=== PATIENT | female | born 1950 | race Caucasian/White ===

== ENCOUNTER 2019-07-16 10:50 | Outpatient (CLI) | payer MEDICARE, OTHER, SELFPAY ==
[2019-07-16 11:02] VITALS: BP 134/78; PULSE 62; RESP 16; TEMP 36.6; O2SAT 98
[2019-07-16] MEDS: denosumab 60 mg SDV SUBCUT (11:18)
[2019-07-16 11:19] VITALS: BP 120/70; RESP 16; TEMP 36.5; O2SAT 98
== END 2019-07-16 10:51 | disposition home or self-care (01) ==
LOC: RHEOACUTE 10:52
PROVIDERS: Family Provider Family Medicine; PCP Family Medicine; Visit Provider Family Medicine
DX: M81.0 Age-related osteoporosis without current pathological fracture (principal)
CPT/HCPCS: 96372; J0897

== ENCOUNTER 2020-01-25 11:30 | Outpatient (CLI) | payer MEDICARE, OTHER, SELFPAY ==
[2020-01-25 11:25] VITALS: BP 127/64; PULSE 63; RESP 16; TEMP 36.6; O2SAT 98
[2020-01-25] MEDS: denosumab 60 mg SDV SUBCUT (11:40)
[2020-01-25 12:07] VITALS: BP 139/74; PULSE 60; RESP 16; O2SAT 98
== END 2020-01-25 11:31 | disposition home or self-care (01) ==
LOC: RHEOACUTE 11:31
PROVIDERS: Family Provider Family Medicine; PCP Family Medicine; Visit Provider Internal Medicine Rheumatology
DX: M81.0 Age-related osteoporosis without current pathological fracture (principal)
CPT/HCPCS: 96372; J0897

== ENCOUNTER 2020-02-09 14:18 | Outpatient (CLI) | payer MEDICARE, OTHER, SELFPAY ==
--- NOTE | 2020-02-09 14:27 | XR_ITS ---
WS: [id number] EXAM: XR DEXA axial skeleton* [id number] DATE OF EXAMINATION: 02/09/2020, 1429 hours COMPARISON: Prior DEXA scan from 01/06/2018 HISTORY: 69 years year old female. Screening for osteoporosis. Postmenopausal. FINDINGS: Bone density of L1 through L4 is estimated at 0.904 g/cm sq: T-score of -2.3. This falls in the rang e of osteopenia. Correlates with an estimated 0.4% decrease in bone density since 2018 Bilateral proximal femur regions have estimated bone mineral density estimated at 0.907 and 0.859 g/c m sq, right and left wrist likely, correlating with a T-score of -0.8 and -1.2. This falls in the ran ge of normal on the right and osteopenia on the left. Correlation estimated 0.8% increase in bone de nsity since 2018 10-year fracture risk for major osteoporotic fracture is 19%. XR/XR DEXA axial skeleton* [id number] IMPRESSION: Osteopenia within the left proximal femur region and lumbar spine region as a w hole. Estimated 0.4% decrease in bone density in the lumbar spine region since 2018.
== END 2020-02-09 14:19 | disposition home or self-care (01) ==
LOC: RADWPI 14:26
PROVIDERS: Family Provider Family Medicine; PCP Family Medicine; Visit Provider Family Medicine
DX: Z78.0 Asymptomatic menopausal state (principal); Z13.820 Encounter for screening for osteoporosis; M85.89 Other specified disorders of bone density and structure, multiple sites
CPT/HCPCS: 77080

== ENCOUNTER → 2020-03-28 10:50 | Outpatient (BNVA) | payer MEDICARE, OTHER, SELFPAY | PROVIDERS: Family Provider Family Medicine; PCP Family Medicine; Visit Provider Obstetrics & Gynecology | DX: Z01.419 Encounter for gynecological examination (general) (routine) without abnormal findings (principal) | CPT/HCPCS: 82270 ==

== ENCOUNTER 2020-04-14 07:50 | Outpatient (CLI) | payer MEDICARE, OTHER, SELFPAY ==
--- NOTE | 2020-04-14 08:00 | MM_ITS ---
WS: [id number] Bilateral screening digital mammogram, 04/14/2020 Clinical Data: SCREENING Comparison: 04/12/2019, 04/10/2018, 04/09/2017, 04/02/2016, 03/30/2015, 03/28/2014, 03/25/2013, 2, 03/03/2012, 02/12/2011, 02/09/2010, 01/12/2009, 12/17/2007, 12/09/2006. Findings: The breast parenchymal pattern shows ridging is density No spiculated masses or clustered calcificati ons are seen. There are no secondary signs of carcinoma. MM/[place] [id number] Impression: 1. Negative bilateral mammogram unchanged. 2. Recommend annual screening mammograms. BIRADS: 1-Negative FOLLOW UP: 1 Year Follow-up The CAD receiving checker was used.
== END 2020-04-14 07:51 | disposition home or self-care (01) ==
LOC: RADSHAW 07:58
PROVIDERS: PCP Family Medicine; Visit Provider Obstetrics & Gynecology
DX: Z12.31 Encounter for screening mammogram for malignant neoplasm of breast (principal)
CPT/HCPCS: 77067

== ENCOUNTER 2020-08-14 10:37 | Outpatient (CLI) | payer MEDICARE, OTHER, SELFPAY ==
[2020-08-14 10:50] VITALS: BP 128/72; PULSE 65; RESP 18; TEMP 36.9; O2SAT 99
[2020-08-14] MEDS: denosumab 60 mg SDV SUBCUT (10:56)
[2020-08-14 15:23] VITALS: BP 128/72; PULSE 65; RESP 18; TEMP 36.9; O2SAT 99
== END 2020-08-14 10:38 | disposition home or self-care (01) ==
LOC: ONCMED 10:39
PROVIDERS: PCP Family Medicine; Visit Provider Family Medicine
DX: M81.0 Age-related osteoporosis without current pathological fracture (principal)
CPT/HCPCS: 96372; J0897

== ENCOUNTER 2021-02-12 14:15 | Outpatient (CLI) | payer MEDICARE, OTHER, SELFPAY ==
[2021-02-12 14:30] VITALS: BP 134/64; PULSE 61; RESP 18; TEMP 36.6; O2SAT 95
[2021-02-12] MEDS: denosumab 60 mg SDV SUBCUT (16:13)
== END 2021-02-12 14:16 | disposition home or self-care (01) ==
PROVIDERS: PCP Family Medicine; Visit Provider Family Medicine
DX: M81.0 Age-related osteoporosis without current pathological fracture (principal); Z79.899 Other long term (current) drug therapy
CPT/HCPCS: 96372; J0897

== ENCOUNTER 2021-04-18 08:04 | Outpatient (CLI) | payer MEDICARE, OTHER, SELFPAY ==
--- NOTE | 2021-04-18 08:16 | MM_ITS ---
WS: [id number] BILATERAL DIGITAL SCREENING MAMMOGRAPHY WITH CAD CLINICAL INFORMATION: SCREENING HISTORY: Screening mammogram. No current complaints. COMPARISON: April 14, 2020 TECHNIQUE: Bilateral CC and MLO views. FINDINGS: The breasts are composed of heterogeneous fibroglandular density tissue, which can limit the detectio n of small underlying mass lesions. Punctate and lucent centered calcifications. No suspicious mass, asymmetry, calcifications, or architectural distortion. No evidence of malignancy. MM/[place] [id number] IMPRESSION: BI-RADS: 2-Benign FOLLOW UP: 1 Year Follow-up Recommend return to annual screening mammography.
== END 2021-04-18 08:05 | disposition home or self-care (01) ==
PROVIDERS: PCP Family Medicine; Visit Provider Family Medicine
DX: Z12.31 Encounter for screening mammogram for malignant neoplasm of breast (principal)
CPT/HCPCS: 77067

== ENCOUNTER 2021-08-20 12:47 | Outpatient (CLI) | payer MEDICARE, OTHER, SELFPAY ==
[2021-08-20 12:58] VITALS: BP 125/77; PULSE 68; RESP 18; TEMP 36.6; O2SAT 97
[2021-08-20] MEDS: denosumab 60 mg SDV SUBCUT (13:07)
[2021-08-20 13:13] VITALS: BP 107/72; PULSE 66; RESP 18; TEMP 36.9; O2SAT 97
== END 2021-08-20 12:48 | disposition home or self-care (01) ==
PROVIDERS: PCP Family Medicine; Visit Provider Family Medicine
DX: M81.0 Age-related osteoporosis without current pathological fracture (principal)
CPT/HCPCS: 96372; J0897

== ENCOUNTER 2022-02-19 10:45 | Outpatient (CLI) | payer MEDICARE, OTHER, SELFPAY ==
[2022-02-19 11:12] VITALS: BP 126/76; PULSE 76; RESP 18; TEMP 36.2; O2SAT 98
[2022-02-19] MEDS: denosumab 60 mg SDV SUBCUT (11:17)
[2022-02-19 11:26] VITALS: BP 131/77; PULSE 77; RESP 18; TEMP 36.6; O2SAT 96
== END 2022-02-19 10:46 | disposition home or self-care (01) ==
PROVIDERS: PCP Family Medicine; Visit Provider Family Medicine
DX: M81.0 Age-related osteoporosis without current pathological fracture (principal)
CPT/HCPCS: 96372; J0897

== ENCOUNTER 2022-03-07 14:26 | Outpatient (CLI) | payer MEDICARE, OTHER, SELFPAY ==
--- NOTE | 2022-03-07 14:28 | XR_ITS ---
WS: [email or web address] SCREENING DEXA SCAN [facility] CLINICAL INFORMATION: OSTEOPOROSIS COMPARISON: February 09, 2020 FINDINGS: The L1-L4 bone mineral density measures 0.997 g/cm2. This corresponds to a T score score of -1.5 and Z score of 0.3. Left femoral neck bone mineral density measures 0.885 g/cm2. This corresponds to a T score of -1.0 an d Z score of 0.6. Right femoral neck bone mineral density measures 0.927 g/cm2. This corresponds to a T score -0.6of an d Z score of 0.9. Mean femoral neck bone mineral density measures 0.906 g/cm2. This corresponds to a T score of -0.8 an d Z score of 0.8. XR/XR DEXA axial skeleton* [id number] IMPRESSION: Osteopenia in the lumbar spine. Normal bone mineralization in the femoral necks approaching osteopenia. Patient's FRAX calculated 10 year probability for major osteoporotic fracture i s 19.2 % and osteoporotic hip fracture is 6.1%. Bone mineral density lumbar spine has increased +10.3% since February 09, 2020. Bone mineral density femoral necks increased +2.6% since 2019
== END 2022-03-07 14:27 | disposition home or self-care (01) ==
LOC: RAD 14:26
PROVIDERS: PCP Family Medicine; Visit Provider Family Medicine
DX: M81.0 Age-related osteoporosis without current pathological fracture (principal)
CPT/HCPCS: 77080

== ENCOUNTER 2022-04-19 06:53 | Outpatient (CLI) | payer MEDICARE, OTHER, SELFPAY ==
--- NOTE | 2022-04-19 07:11 | MM_ITS ---
WS: [id number] BILATERAL SCREENING DIGITAL TOMOSYNTHESIS MAMMOGRAM WITH CAD HISTORY: SCREENING COMPARISON: 04/18/2021, 04/14/2020 Bilateral CC and MLO views with tomosynthesis and synthetic mammography submitted. Computer aided det ection analyzed. Breast composition: The breasts are heterogeneously dense, which may obscure small masses. No suspici ous masses, microcalcifications or architectural distortion. Benign calcifications in each breast. MM/[place] [id number] IMPRESSION: BI-RADS: 2-Benign FOLLOW UP: 1 Year Follow-up
== END 2022-04-19 06:54 | disposition home or self-care (01) ==
LOC: RAD 06:53
PROVIDERS: PCP Family Medicine; Visit Provider Family Medicine
DX: Z12.31 Encounter for screening mammogram for malignant neoplasm of breast (principal)
CPT/HCPCS: 77063; 77067

== ENCOUNTER 2022-09-17 13:00 | Oncology outpatient (recurring) (ONCR) | payer MEDICARE, OTHER, SELFPAY ==
[2022-09-17] MEDS: denosumab 60 mg SDV SUBCUT (13:42)
[2022-09-17 13:52] VITALS: BP 133/75; PULSE 61; TEMP 36.8; O2SAT 96
== END 2022-09-20 23:59 | disposition home or self-care (01) ==
LOC: ONCMED 13:01
PROVIDERS: PCP Family Medicine; Visit Provider Family Medicine
DX: M81.0 Age-related osteoporosis without current pathological fracture (principal); Z79.899 Other long term (current) drug therapy
CPT/HCPCS: 96372; J0897

== ENCOUNTER 2023-03-17 13:22 | Oncology outpatient (recurring) (ONCR) | payer MEDICARE, OTHER, SELFPAY ==
[2023-03-17 13:45] VITALS: BP 123/59; PULSE 70; RESP 16; TEMP 36.8; O2SAT 97
[2023-03-17] MEDS: denosumab 60 mg SDV SUBCUT (13:46)
== END 2023-03-22 23:59 | disposition home or self-care (01) ==
LOC: ONCMED 13:23
PROVIDERS: PCP Family Medicine; Visit Provider Family Medicine
DX: M81.0 Age-related osteoporosis without current pathological fracture (principal)
CPT/HCPCS: 96372; J0897

== ENCOUNTER 2023-04-21 07:39 | Outpatient (CLI) | payer MEDICARE, OTHER, SELFPAY ==
--- NOTE | 2023-04-21 07:45 | MM_ITS ---
WS: [email or web address] BILATERAL SCREENING DIGITAL TOMOSYNTHESIS MAMMOGRAM WITH CAD HISTORY: SCREENING COMPARISON: 04/19/2022, 04/18/2021, 04/12/2019, 04/14/2020 Bilateral CC and MLO views with tomosynthesis and synthetic mammography submitted. Computer aided det ection analyzed. Breast composition: The breasts are heterogeneously dense, which may obscure small masses. No suspici ous masses, microcalcifications or architectural distortion. There is a stable asymmetry in the anter ior medial LEFT breast adjacent to a calcification which has been present for several years. No incre ase in size. Additional benign calcifications within each breast. IMPRESSION: MM/[place] [id number] BI-RADS: 2-Benign FOLLOW UP: 1 Year Follow-up
== END 2023-04-21 07:40 | disposition home or self-care (01) ==
LOC: RAD 07:39
PROVIDERS: PCP Family Medicine; Visit Provider Family Medicine
DX: Z12.31 Encounter for screening mammogram for malignant neoplasm of breast (principal)
CPT/HCPCS: 77063; 77067

== ENCOUNTER 2023-09-12 09:48 | Oncology outpatient (recurring) (ONCR) | payer MEDICARE, OTHER, SELFPAY ==
[2023-09-12 10:01] VITALS: BP 124/63; PULSE 63; RESP 16; TEMP 36.8; O2SAT 95
[2023-09-12] MEDS: denosumab 60 mg SDV SUBCUT (10:17)
== END 2023-09-21 23:59 | disposition home or self-care (01) ==
LOC: ONCMED 09:50
PROVIDERS: PCP Family Medicine; Visit Provider Family Medicine
DX: M81.0 Age-related osteoporosis without current pathological fracture (principal)
CPT/HCPCS: 96372; J0897

== ENCOUNTER 2024-04-09 11:13 | Oncology outpatient (recurring) (ONCR) | payer MEDICARE, OTHER, SELFPAY ==
[2024-04-09] MEDS: denosumab 60 mg SDV SUBCUT (11:59)
== END 2024-04-22 23:59 | disposition home or self-care (01) ==
PROVIDERS: PCP Family Medicine; Visit Provider Family Medicine
DX: M81.0 Age-related osteoporosis without current pathological fracture (principal); Z79.899 Other long term (current) drug therapy; Z53.9 Procedure and treatment not carried out, unspecified reason
CPT/HCPCS: 96372; J0897

== ENCOUNTER 2024-04-22 07:43 | Outpatient (CLI) | payer MEDICARE, OTHER, SELFPAY ==
--- NOTE | 2024-04-22 07:47 | MM_ITS ---
WS: [email or web address] BILATERAL SCREENING DIGITAL TOMOSYNTHESIS MAMMOGRAM WITH CAD HISTORY: SCREENING COMPARISON: 04/21/2023, 04/19/2022, 04/12/2019 Bilateral CC and MLO views with tomosynthesis and synthetic mammography submitted. Computer aided det ection analyzed. Breast composition: The breasts are extremely dense, which lowers the sensitivity of mammography. No suspicious masses, microcalcifications or architectural distortion. Dense asymmetries and calcificati ons are stable. MM/MM [facility] tomosynthesis [id number] IMPRESSION: BI-RADS: 2 - Benign FOLLOW UP: 1 Year Follow-up
== END 2024-04-22 07:44 | disposition home or self-care (01) ==
LOC: RAD 07:44
PROVIDERS: PCP Family Medicine; Visit Provider Family Medicine
DX: Z12.31 Encounter for screening mammogram for malignant neoplasm of breast (principal); R92.333 Mammographic heterogeneous density, bilateral breasts; N64.89 Other specified disorders of breast; R92.1 Mammographic calcification found on diagnostic imaging of breast
CPT/HCPCS: 77063; 77067

== ENCOUNTER 2024-07-07 15:32 | Outpatient (CLI) | payer MEDICARE, OTHER, SELFPAY ==
--- NOTE | 2024-07-07 15:30 | XR_ITS ---
WS: [email or web address] SCREENING DEXA SCAN [facility] CLINICAL INFORMATION: M81.0 - Age-related osteoporosis without current patholog... COMPARISON: 2021 FINDINGS: The L1-L4 bone mineral density measures 1.062 g/cm2. This corresponds to a T score score of -1.0 and Z score of 0.9. Left femoral neck bone mineral density measures 0.907 g/cm2. This corresponds to a T score of -0.8 an d Z score of 0.9. Right femoral neck bone mineral density measures 0.928 g/cm2. This corresponds to a T score -0.6of an d Z score of 1.1. Mean femoral neck bone mineral density measures 0.918 g/cm2. This corresponds to a T score of -0.7 an d Z score of 1.0. XR/XR DEXA axial skeleton* [id number] IMPRESSION: Osteopenia lumbar spine and lower end of the range. Normal bone mineralization femoral necks. Patient's FRAX calculated 10 year probability for major osteoporotic fracture i s 20.7% and osteoporotic hip fracture is 9.6%. Bone mineral density lumbar spine increased 6.5% bone mineral density femoral necks increased 1.3%
== END 2024-07-07 15:33 | disposition home or self-care (01) ==
LOC: RAD 15:33
PROVIDERS: PCP Family Medicine; Visit Provider Nurse Practitioner Women's Health
DX: M81.0 Age-related osteoporosis without current pathological fracture (principal); Z78.0 Asymptomatic menopausal state; M85.88 Other specified disorders of bone density and structure, other site
CPT/HCPCS: 77080

== ENCOUNTER 2024-10-12 14:20 | Oncology outpatient (recurring) (ONCR) | payer MEDICARE, OTHER, SELFPAY ==
[2024-10-12] MEDS: denosumab 60 mg SDV SUBCUT (14:52)
== END 2024-10-20 23:59 | disposition home or self-care (01) ==
PROVIDERS: PCP Family Medicine; Visit Provider Family Medicine
DX: M81.0 Age-related osteoporosis without current pathological fracture (principal); Z79.899 Other long term (current) drug therapy
CPT/HCPCS: 96372; J0897

== ENCOUNTER 2025-04-26 07:41 | Outpatient (CLI) | payer MEDICARE, OTHER, SELFPAY ==
--- NOTE | 2025-04-26 07:48 | MM_ITS ---
WS: [email or web address] BILATERAL 3D TOMOSYNTHESIS DIGITAL SCREENING MAMMOGRAPHY WITH CAD CLINICAL INFORMATION: SCREENING HISTORY: Screening mammogram. No current complaints. COMPARISON: 2023 TECHNIQUE: Bilateral CC and MLO views. FINDINGS: The breasts are composed of heterogeneous fibroglandular density tissue, which can limit the detection of small underlying mass lesions. No suspicious mass, asymmetry, calcifications, or architectural distortion. No evidence of malignancy. Punctate and lucent centered calcifications MM/MM [facility] tomosynthesis [id number] IMPRESSION: DENSITY: The breasts are heterogeneously dense, which may obscure small masses. BI-RADS: 2 - Benign FOLLOW UP: 1 Year Follow-up Recommend return to annual screening mammography.
== END 2025-04-26 07:42 | disposition home or self-care (01) ==
LOC: RAD 07:42
PROVIDERS: PCP Family Medicine; Visit Provider Nurse Practitioner Women's Health
DX: Z12.31 Encounter for screening mammogram for malignant neoplasm of breast (principal); R92.333 Mammographic heterogeneous density, bilateral breasts; R92.323 Mammographic fibroglandular density, bilateral breasts; R92.1 Mammographic calcification found on diagnostic imaging of breast
CPT/HCPCS: 77063; 77067

== ENCOUNTER 2025-04-28 10:14 | Oncology outpatient (recurring) (ONCR) | payer MEDICARE, OTHER, SELFPAY ==
[2025-04-28] MEDS: denosumab-bbdz 60 MG Syringe SUBCUT (10:42)
== END 2025-05-22 23:59 | disposition home or self-care (01) ==
PROVIDERS: PCP Family Medicine; Visit Provider Family Medicine
DX: M81.0 Age-related osteoporosis without current pathological fracture (principal); Z79.899 Other long term (current) drug therapy
CPT/HCPCS: 96372; Q5136